=== PATIENT | male | born 1950 | race Two or more races ===

== ENCOUNTER → 2022-03-19 | Emergency (ER) | payer MEDICARE ==
[~2022-03-19] VITALS: Ht 149.9 cm; Wt 94.2 kg
[~2022-03-19] MED LIST: KETOROLAC TROMETH 30 MG/ML 1ML VIAL IM ONE; KETOROLAC TROMETH 30 MG/ML 1ML VIAL IV ONE; SODIUM CHLORIDE 0.9% 1,000 ML IV ONE
[2022-03-19 02:18] VITALS: BP 148/68
== END | disposition home or self-care (01) ==
LOC: ER 01:53
DX: R10.9 Unspecified abdominal pain (principal); I10 Essential (primary) hypertension; E11.9 Type 2 diabetes mellitus without complications; E78.5 Hyperlipidemia, unspecified
CPT/HCPCS: 71045; 74176

== ENCOUNTER 2024-04-08 08:16 | Emergency (ER) | payer MEDICARE, OTHER ==
[~2024-04-08] VITALS: Ht 175.3 cm; Wt 96.0 kg
--- NOTE | 2024-04-08 08:27 | ED.PDOC ---
History of Present Illness HPI Comments 23-year-old male has been having chest pain for the past two days. Chest pain on rest and exertion. Has not ever had cardiac event tenderness past. He does have history of hypertension diabetes. Patient has not taken any medication for his chest pain. No radiation of chest pain. Chest pain he has 5/10. Denies nausea vomiting. Denies sweating. Denies any other symptoms. Chief Complaint: Chest Pain Time Seen by MD: 08:21 Reviewed Notes: Nurses Notes, Medications, Allergies Information Source: Patient Mode of Arrival: Ambulatory Severity: Moderate Timing: Days Duration: Since onset Past Medical History PAST MEDICAL HISTORY: DM, High Lipids, HTN, Kidney Stones Family History Family History: Unknown Social History Smoker: Non-Smoker Alcohol: Denies ETOH Use Drugs: Denies Drug Use Constitutional: denies: chills, diaphoresis, fatigue, fever, malaise, sweats, weakness, others EENTM: denies: blurred vision, double vision, ear bleeding, ear discharge, ear drainage, ear pain, ear ringing, eye pain, eye redness, hearing loss, mouth pain, mouth swelling, nasal discharge, nose bleeding, nose congestion, nose pain, photophobia, tearing, throat pain, throat swelling, voice changes, others Respiratory: denies: cough, hemoptysis, orthopnea, SOB at rest, shortness of breath, SOB with excertion, stridor, wheezing, others Cardiovascular: reports: chest pain; denies: dizzy spells, diaphoresis, Dyspnea on exertion, edema, irregular heart beat, left arm pain, lightheadedness, palpitations, PND, syncope, others Gastrointestinal: denies: abdomen distended, abdominal pain, blood streaked bowels, constipated, diarrhea, dysphagia, difficulty swallowing, hematemesis, melena, nausea, poor appetite, poor fluid intake, rectal bleeding, rectal pain, vomiting, others Genitourinary: denies: burning, dysuria, flank pain, frequency, hematuria, incontinence, penile discharge, penile sore, pain, testicle pain, testicle swelling, urgency, others Neurological: denies: dizziness, fainting, headache, left sided numbness, left sided weakness, numbness, paresthesia, pre-existing deficit, right sided numbn ess, right sided weakness, seizure, speech problems, tingling, tremors, weakness, others Musculoskeletal: denies: back pain, gout, joint pain, joint swelling, muscle pain, muscle stiffness, neck pain, others Integumetry: denies: bruises, change in color, change in hair/nails, dryness, laceration, lesions, lumps, rash, wounds, others Allergic/Immunocompromised: denies: Difficulty Healing, Frequent Infections, Hives, Itching, others Hematologic/Lymphatic: denies: anemia, blood clots, easy bleeding, easy bruising, swollen glands, others Endocrine: denies: excessive hunger, excessive sweating, excessive thirst, excessive urination, flushing, intolerance to cold, intolerance to heat, unexplained weight gain, unexplained weight loss, others Psychiatric: denies: anxiety, bipolar disorder, depression, hopeless, panic disorder, schizophrenia, sleepless, suicidal, others Physical Exam General Appearance: Moderate Distress HEENT: Normal ENT Inspection, Pharynx Normal, TMs Normal Neck: Full Range of Motion, Non-Tender, Normal, Normal Inspection Respiratory: Chest Non-Tender, Lungs Clear, No Accessory Muscle Use, No Respiratory Distress, Normal Breath Sounds Cardiovascular: No Edema, No JVD, No Murmur, No Gallop, Normal Peripheral Pulses, Regular Rate/Rhythm Breast Exam: Deferred Gastrointestinal: No Organomegaly, Non Tender, No Pulsatile Mass, Normal Bowel Sounds, Soft Genitalia: Deferred Pelvic: Deferred Rectal: Deferred Extremities: No calf tenderness, Normal capillary refill, Normal inspection, Normal range of motion, Non-tender, No pedal edema Musculoskeletal : Apperance: Normal Neurologic: Alert, bulk sugar handler II-XII nml as Tested, No Motor Deficits, Normal Affect, Normal Mood, No Sensory Deficits Cerebellar Function: Normal Reflexes: Normal Skin: Dry, Normal Color, Warm Peripheral Pulses: 3+ Radial (R), 3+ Radial (L) Lymphatic: No Adenopathy Was a procedure done? Was a procedure done?: No Differential Dx Considerations may include: Chest pain. Electrolyte imbalance X-Ray, Labs, Meds, VS Patient alert. Complaining of chest pain. Vitals stable. Answering all questions. History of hypertension diabetes. Has risk factors for coronary artery disease. Will need echocardiogram. EKG reviewed does not show any acute changes. Was given aspirin. Was given nitro. Reviewed his history. Explained to the patient. Continue cardiac monitoring. Time of 1ST Reevaluation: 08:27 Reevaluation 1ST: Unchanged Patient Education/Counseling: Diagnosis, Treatment, Prognosis Family Education/Counseling: No Family Present Departure 1 Departure Time of Disposition: 08:28 Impression: Primary Impression: Chest pain of unknown etiology Additional Impressions: Hypertension Qualified Codes: I10 - Essential (primary) hypertension Uncontrolled diabetes mellitus Qualified Codes: E13.65 - Other specified diabetes mellitus with hyperglycemia Disposition: ADMITTED INPATIENT Admit to: Med Surg Condition: Guarded Critical Care Note Critical Care Time?: Yes (45 min-critical care time only) Stability Stability form required: No Heart Score Heart Score: Heart Score Response (Comments) Value History Slightly Suspicious 0 EKG Normal 0 Age >65 2 Risk Factors >3 or Hx ASHD 2 Troponin Normal limit 0 Total 4 ZAC KEANE MD Apr 08, 2024 08:27
--- NOTE | 2024-04-08 08:31 | ECG ---
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
[2024-04-08] MEDS: ASPirin 325 MG TAB PO ONE (08:33)
[2024-04-08 08:45] LABS: Basophils # (auto) 0 10 ^3/uL (0-0.2); Basophils % (auto) 0.6 % (0.0-2.0); Eosinophils # (auto) 0.6 10 ^3/uL (0-0.8); Hematocrit 42.7 % (41.0-53.0); Lymphocytes # (auto) 2.3 10 ^3/uL (0.4-5.4); Lymphocytes % (auto) 31.4 % (10.0-50.0); Mean Corpuscular Hemoglobin 30.4 pg (28.0-32.0); Mean Corpuscular Hgb Conc. 32.9 g/dL (32.0-36.0); Mean Corpuscular Volume 92.5 fL (80.0-100.0); Monocytes # (auto) 0.4 10 ^3/uL (0-1.3); Monocytes % (auto) 5.9 % (0.0-12.0); Neutrophils # (auto) 3.9 10 ^3/uL (1.6-8.6); Neutrophils % (auto) 54.1 % (37.0-80.0); Nucleated Red Blood Cells % 0.1 %; Platelet Count (auto) 248 10^3/uL (140-450); Red Blood Cells 4.62 10^6/uL (4.5-5.90); White Blood Cell 7.2 10^3/uL (4.4-10.8)
[2024-04-08 08:52] LABS: Chloride 106 mmol/L (98-107); Potassium 3.9 mmol/L (3.5-5.1); Sodium 139 mmol/L (136-145)
[2024-04-08 08:53] LABS: Anion Gap 3 (5-15); Calcium 9.6 mg/dL (8.7-10.4); Carbon Dioxide 30 mmol/L (20-31)
[2024-04-08 08:58] LABS: BUN/Creatinine Ratio 15.7 (10.0-20.0); Blood Urea Nitrogen 21 mg/dL (9-23); Glucose 214 mg/dL (74-106)
[2024-04-08 09:15] VITALS: PULSE 61; RESP 14; O2SAT 95
[2024-04-08] MEDS: NITROGLYCERIN 0.4 MG SL TAB SL ONE (09:30)
[2024-04-08 11:15] VITALS: BP 127/62; PULSE 61; RESP 14; O2SAT 97
[2024-04-08] MEDS ORDERED: MORPHINE SULFATE INJ 2 MG/ml SYRG IV PRN (12:00)
[2024-04-08] MEDS ORDERED: ACETAMINOPHEN 325 MG TAB PO PRN (12:00)
[2024-04-08] MEDS ORDERED: MAALOX PLUS or MAALOX 30 ML PO ONE (12:00)
[2024-04-08] MEDS ORDERED: SOD CHL 0.45% 1,000 ML IV SCH (12:00)
[2024-04-08] MEDS ORDERED: MORPHINE SULFATE 4 MG/ML SYR/VIAL IV PRN (12:00)
[2024-04-08] MEDS ORDERED: DEXTROSE (50%) 50ML SYRG IV PRN (12:00)
[2024-04-08] MEDS ORDERED: NITROGLYCERIN 0.4 MG SL TAB SL PRN ×2 (12:00)
[2024-04-08] MEDS ORDERED: ONDANSETRON HCL 4 MG/2 ML VIAL IV PRN (12:00)
--- NOTE | 2024-04-08 12:00 | ECG ---
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
--- NOTE | 2024-04-08 12:47 | DVHINCON2 ---
Date Seen: Apr 08, 2024 History of Present Illness 73 yo male for acute chest pain for two days stating that he was having intermittent chest pain for the past 2 days. Patient states that chest pain was happening after rest after large meals but no acute distress states that in the ED the medications made him feel better and he has changed his mind and would now like to go home at this time had a full discussion Past Medical History DM, HTN , HLD Allergies: Coded Allergies: NO KNOWN ALLERGIES (Unverified , 04/08/24) Current Medications Current Medications Medications (Trade) Dose Ordered Sig/Aminta Route PRN Reason Start Time Stop Time Status Last Admin Sodium Chloride 1,000 ml @ 75 mls/hr [id number] IV 04/08/24 12:00 04/08/24 12:22 DC Aspirin 81 mg DAILY PO 04/09/24 10:00 04/08/24 12:22 DC Atorvastatin Calcium (Lipitor) 40 mg HS PO 04/08/24 22:00 04/08/24 12:22 DC Metoprolol Tartrate (Lopressor Tablet) 12.5 mg Q12HR PO 04/08/24 22:00 04/08/24 12:22 DC Lisinopril (Zestril Tablet) 5 mg DAILY PO 04/09/24 10:00 04/08/24 12:22 DC Morphine Sulfate 2 mg Q30MP PRN IV FOR CHEST PAIN 04/08/24 12:00 04/08/24 12:22 DC Acetaminophen (Tylenol Tablet) 650 mg Q6HP PRN PO MILD PAIN (1-3 PAIN SCALE) 04/08/24 12:00 04/08/24 12:22 DC Docusate Sodium (Colace Capsule) 100 mg DAILY PO 04/09/24 10:00 04/08/24 12:22 DC Nitroglycerin (Ntrostat Sublingual) 0.4 mg Q5MINP PRN SL FOR CHEST PAIN 04/08/24 12:00 04/08/24 12:17 DC Ondansetron HCl (Zofran) 4 mg Q4HP PRN IV NAUSEA / VOMITING 04/08/24 12:00 04/08/24 12:22 DC Nitroglycerin (Ntrostat Sublingual) 0.4 mg Q5MINP PRN SL FOR CHEST PAIN 04/08/24 12:00 04/08/24 12:22 DC Morphine Sulfate 2 mg Q30M PRN IV FOR CHEST PAIN 04/08/24 12:00 04/08/24 12:18 DC Diagnostic Test (Pha) (Accu-Chek Comfort Curve T) 1 strip ACHS 04/08/24 17:00 04/08/24 12:22 DC Insulin Human Regular (InsuLIN R) HS SC 04/08/24 22:00 04/08/24 12:22 DC Insulin Human Regular (InsuLIN R) AC SC 04/08/24 17:00 04/08/24 12:22 DC Dextrose 50 ml UD PRN IV Blood Sugar LESS THAN 60 04/08/24 12:00 04/08/24 12:22 DC Review of Systems All systems reviewed and negative for evaluation Cardiac chest pain resolved as per patient Vital Signs Vital Signs Date Time Temp Pulse Resp B/P (MAP) Pulse Ox O2 Delivery O2 Flow Rate FiO2 04/08/24 09:24 63 04/08/24 08:30 98.0 17 156/65 (95) 99 Physical Exam General Awake alert x3 HEENT NCAT PERRLA Cardio: RRR S1 s2 Lungs CTABL GI: soft NTTP extremities: NO edema noted normal gait Labs/Diagnostic Data Labs Test 04/08/24 08:33 Range/Units White Blood Count 7.2 4.4-10.8 10^3/uL Red Blood Count 4.62 4.5-5.90 10^6/uL Hemoglobin 14.0 13.5-17.5 g/dL Hematocrit 42.7 41.0-53.0 % Mean Corpuscular Volume 92.5 80.0-100.0 fL Mean Corpuscular Hemoglobin 30.4 28.0-32.0 pg Mean Corpuscular Hemoglobin Concent 32.9 32.0-36.0 g/dL Red Cell Distribution Width 13.0 11.8-14.3 % Platelet Count 248 140-450 10^3/uL Mean Platelet Volume 7.5 6.9-10.8 fL Neutrophils (%) (Auto) 54.1 37.0-80.0 % Lymphocytes (%) (Auto) 31.4 10.0-50.0 % Monocytes (%) (Auto) 5.9 0.0-12.0 % Eosinophils (%) (Auto) 8.0 H 0.0-7.0 % Basophils (%) (Auto) 0.6 0.0-2.0 % Neutrophils # (Auto) 3.9 1.6-8.6 10 ^3/uL Lymphocytes # (Auto) 2.3 0.4-5.4 10 ^3/uL Monocytes # (Auto) 0.4 0-1.3 10 ^3/uL Eosinophils # (Auto) 0.6 0-0.8 10 ^3/uL Basophils # (Auto) 0 0-0.2 10 ^3/uL Nucleated Red Blood Cells 0.1 % Sodium Level 139 136-145 mmol/L Potassium Level 3.9 3.5-5.1 mmol/L Chloride Level 106 98-107 mmol/L Carbon Dioxide Level 30 20-31 mmol/L Anion Gap 3 L 5-15 Blood Urea Nitrogen 21 9-23 mg/dL Creatinine 1.34 H 0.700-1.30 mg/dL Glomerular Filtration Rate Calc 56 >90 mL/min BUN/Creatinine Ratio 15.7 10.0-20.0 Serum Glucose 214 H 74-106 mg/dL Calcium Level 9.6 8.7-10.4 mg/dL Troponin I High Sensitivity 5 </=54 ng/L Assessment Chest pain unconfirmed source recommended further evaluation patient prefers outpatient follow up does not want to wait in the hospital anymore patient wants to sign out AMA Problems(with codes): (1) Hypertension (2) Uncontrolled diabetes mellitus (3) Chest pain of unknown etiology Plan discussed with: Patient Date of Service: Apr 08, 2024 Billing Provider: ALEX SOL MD Common Visit Codes: CONSULT ONLY ALEX SOL MD Apr 08, 2024 12:47
[2024-04-08] MEDS ORDERED: ACCU-CHEK COMFORT CURVE STRIP VI SCH (17:00)
[2024-04-08] MEDS ORDERED: InsuLIN REG 1unit/0.01ml Soln (100units/ml) SC SCH ×2 (17:00→22:00)
[2024-04-08] MEDS ORDERED: METOPROLOL TARTRATE 25 MG TAB PO SCH (22:00)
[2024-04-08] MEDS ORDERED: ATORVASTATIN 20 MG TAB PO SCH (22:00)
[2024-04-09] MEDS ORDERED: ASPirin 81 mg TAB PO SCH (10:00)
[2024-04-09] MEDS ORDERED: DOCUSATE SOD 100 MG CAP PO SCH (10:00)
[2024-04-09] MEDS ORDERED: LISINOPRIL 5 MG TAB PO SCH (10:00)
== END 2024-04-08 12:33 | disposition left against medical advice (07) ==
LOC: ER 08:16
DX: I10 Essential (primary) hypertension (principal); E11.65 Type 2 diabetes mellitus with hyperglycemia; R07.89 Other chest pain; E78.5 Hyperlipidemia, unspecified
CPT/HCPCS: 36415; 80048; 84484; 85025; 93005